=== PATIENT | male | born 1965 | race Caucasian/White ===

== ENCOUNTER 2021-06-08 17:14 | Observation (INO) | payer SELFPAY ==
[2021-06-08 18:35] LABS: #Monocytes 1.1 10x3/uL (0.0-1.1); #Neutrophils 8.1 10x3/uL (1.5-8.4); %Basophils 0.3 % (0.0-2.0); %Eosinophils 0.2 % (0.0-6.0); %Lymphocytes 8.8 % (18.0-47.0); %Monocytes 10.7 % (0.0-10.0); %Neutrophils 79.8 % (40.0-75.0); Hemoglobin 15.8 g/dL (13.5-17.5); Mean Corpuscular HGB CONC 33.6 g/dL (32.0-36.0); Mean Corpuscular Hemoglobin 30.4 pg (27.0-33.0); Mean Corpuscular Volume 90.6 fl (81.2-95.1); Mean Platelet Volume 11.6 fl (7.4-10.4); Platelet Count 187 10x3/uL (150-450); RBC Distribution Width 12.4 % (11.5-14.5); Red Blood Cell (RBC) Count 5.19 10x6/uL (4.32-5.72); White Blood Cell (WBC) Count 10.2 10x3/uL (3.5-10.5)
[2021-06-08 18:49] LABS: ALT (SGPT) 27 U/L (8-55); AST (SGOT) 23 U/L (5-34); Albumin 4.5 g/dL (3.5-5.0); Alkaline Phosphatase 53 U/L (40-110); Anion Gap 17 mmol/L (10-20); BUN (Urea Nitrogen) 18 mg/dL (8.4-25.7); Bilirubin, Total 0.5 mg/dL (0.2-1.2); Calc. Creatinine Clearance 0 mL/min (70-130); Calcium 10.1 mg/dL (7.8-10.44); Carbon Dioxide 24 mmol/L (22-29); Chloride 98 mmol/L (98-107); Globulin 3.7 g/dL (2.4-3.5); Glucose 158 mg/dL (70-105); Lipase 19 U/L (8-78); Potassium 3.4 mmol/L (3.5-5.1); Protein, Total 8.2 g/dL (6.0-8.3); Sodium 136 mmol/L (136-145)
[2021-06-08] MEDS ORDERED: Piperacillin/Tazobactam 3.375 GM VIAL ONE (19:00)
[2021-06-08] MEDS ORDERED: Morphine 4 MG/ML VIAL SLOW IVP PRN (22:20)
[2021-06-08] MEDS ORDERED: Ondansetron PF 4 MG/2 ML Vial IVP PRN (22:30)
[2021-06-08] MEDS ORDERED: Ondansetron ODT 4 MG TAB SL PRN (22:30)
[2021-06-08 22:38] VITALS: BMI 24.7
[2021-06-08] MEDS: Lactated Ringer's 1,000 ML IV SCH (23:02)
[2021-06-09] MEDS ORDERED: Piperacillin/Tazobactam 3.375 GM in Sodium Chloride 0.9% 100 ML IVPB SCH ×2 (04:00→12:00)
[2021-06-09] MEDS: Lactated Ringer's 1,000 ML IV SCH (07:08)
[2021-06-09] MEDS ORDERED: Bupivacaine PF 0.5% 30 ML VIAL ONE (07:12)
[2021-06-09] MEDS ORDERED: EPINEPHrine 1 MG/ML AMP ONE (07:12)
[2021-06-09] MEDS ORDERED: Morphine 4 MG/ML VIAL SLOW IVP PRN ×2 (07:20→07:43)
[2021-06-09] MEDS ORDERED: Lactated Ringer's 1,000 ML IV SCH (07:30)
[2021-06-09] MEDS ORDERED: Fentanyl 250 MCG/5 ML VIAL ONE (08:37)
[2021-06-09] MEDS ORDERED: Midazolam HCl 2 mg/2 ml Vial ONE (08:37)
[2021-06-09] MEDS ORDERED: Ketorolac Tromethamine 15 MG/ML VIAL ONE (08:37)
[2021-06-09] MEDS ORDERED: PROPOFOL 40 ML ONE (08:37)
[2021-06-09] MEDS ORDERED: Ondansetron PF 4 MG/2 ML Vial ONE (08:38)
[2021-06-09] MEDS ORDERED: Succinylcholine 200 MG/10 ml SYRINGE FS ONE (08:38)
[2021-06-09] MEDS ORDERED: Dexamethasone 4 mg/ml Vial ONE (08:38)
[2021-06-09] MEDS ORDERED: Rocuronium Bromide 10 MG/ML (10ML VIAL) ONE (08:38)
[2021-06-09] MEDS ORDERED: Lidocaine 1% PF 5 ML VIAL ONE (08:38)
[2021-06-09] MEDS ORDERED: Lidocaine 4% PF 5 ML AMP ONE (08:38)
[2021-06-09] MEDS ORDERED: SUGAMMADEX SODIUM 200 MG/2 ML VIAL ONE (08:51)
[2021-06-09] MEDS ORDERED: Acetaminophen 325 MG TAB PO PRN (11:03)
[2021-06-09] MEDS ORDERED: HYDROcodone/Acetaminophen 5/325 mg Tablet PO PRN ×2 (11:03)
[2021-06-09 16:49] VITALS: BP 132/80; TEMP 97.1
== END 2021-06-09 18:10 | disposition home or self-care (01) ==
LOC: CSHERS 17:14 → CSHTELE 21:28
PROVIDERS: ADMIT Surgery; ATTEND Surgery
PROC: 0DTJ4ZZ Resection of Appendix, Percutaneous Endoscopic Approach (ICD-10-PCS; principal; 2021-06-08)
DX: K35.30 Acute appendicitis with localized peritonitis, without perforation or gangrene (principal); U07.1 COVID-19
CPT/HCPCS: 74176; 80053; 83690; 85025; 88304; 93005; 96365; 96376; G0378; J0171; J1100; J1885; J2250; J2405; J2543; J2704; J3010; J3490; J7120; S0020